=== PATIENT | male | born 1980 | race American Indian/Alaskan Native ===

== ENCOUNTER 2020-07-05 18:39 | Emergency (ER) | payer MEDICARE ==
[2020-07-05] MEDS ORDERED: NORepinephrine/NS 4 MG-250 ML 4 MG/250 ML BAG IV ONE (19:02)
[2020-07-05 19:38] VITALS: BP 118/77
[2020-07-05 19:54] LABS: Basophils % (Auto) 0.3 % (0.0-1.8); Eosinophils # (Auto) 0.1 K/mm3 (0.0-0.4); Eosinophils % (Auto) 1.1 % (0.0-4.3); Hematocrit 25.9 % (35.5-45.6); Hemoglobin 8.2 gm/dl (11.8-15.2); Lymphocytes # (Auto) 0.7 K/mm3 (1.2-5.4); Lymphocytes % (Auto) 6.2 % (13.4-35.0); Mean Corpuscular HGB Conc 32 % (32-34); Mean Corpuscular Volume 80 fl (84-94); Monocytes # (Auto) 0.7 K/mm3 (0.0-0.8); Monocytes % (Auto) 5.7 % (0.0-7.3); Platelet Count 286 K/mm3 (140-440); Red Blood Count 3.23 M/mm3 (3.65-5.03); Red Cell Distribution Width 16.9 % (13.2-15.2)
[2020-07-05 19:54] LABS: Bilirubin,Urine NEG (Negative); Blood,Urine SM (Negative); Color,Urine Yellow (Yellow); Mucus,Urine FEW /HPF; Urobilinogen,Urine < 2.0 mg/dL (<2.0)
[2020-07-05] MEDS ORDERED: oxyCODONE /ACETAMINOPHEN 5-325MG TAB PO ONE (20:05)
[2020-07-05] MEDS ORDERED: ONDANSETRON 4 MG ODT TAB PO ONE (20:06)
[2020-07-05] MEDS ORDERED: oxyCODONE /ACETAMINOPHEN 5-325MG TAB ONE (20:06)
[2020-07-05] MEDS ORDERED: ONDANSETRON 4 MG ODT TAB ONE (20:08)
[2020-07-05 20:14] LABS: Albumin 2.9 g/dL (3.9-5); Calcium 9.4 mg/dL (8.4-10.2)
[2020-07-05] MEDS ORDERED: LIDOCAINE-MPF (1%) 10 MG/1 ML VIAL 5 ML INFILTRATI ONE (22:34)
--- NOTE | 2020-07-05 23:48 | Emergency Department Report ---
ED Male HPI - General Chief complaint: Abdominal Pain Stated complaint: ABD PAIN Time Seen by Provider: 07/05/20 20:45 Source: patient Mode of arrival: Ambulatory Limitations: No Limitations - History of Present Illness Initial comments: 39-year-old -[place]ian male with past medical history of HIV, pancreatitis, acute encephalopathy, renal insufficiency, squamous cell carcinoma, papillary lichenification0, colostomy presents to the emergency department complaining suprapubic abdominal pain and pressure with penile burning upon urination and increased urinary urgency decreased production strong suspicion for urinary tract infection and seeking pain relief. Symptoms have been going on for the past 2 to 3 days states that he took some medication which did not help his symptoms. Reports no fever, chills, sweats no hemoptysis no hematemesis hematochezia no chest pain no shortness of breath. MD Complaint: dysuria - Related Data Previous Rx's Medication Instructions Recorded Last Taken Type Sulfamethoxazole/Trimethoprim 1 each PO DAILY #10 tablet 07/05/20 Unknown Rx [Bactrim Ds] Acetaminophen/Codeine [Tylenol 1 tab PO Q6H PRN #10 tab 07/06/20 Unknown Rx /Codeine # 3 tab] Allergies Allergy/AdvReac Type Severity Reaction Status Date / Time No Known Allergies Allergy Unverified 07/05/20 19:35 ED Review of Systems ROS: Stated complaint: ABD PAIN Other details as noted in HPI ED Past Medical Hx - Past Medical History Previous Medical History?: Yes Hx of Cancer: Yes (colon) Hx HIV: Yes (AIDS) Additional medical history: Pancreatitis, Elevated Liver Enzymes, AMS - Surgical History Additional Surgical History: Colostomy, THR - Social History Smoking Status: Never Smoker Substance Use Type: None - Medications Home Medications: Home Medications Medication Instructions Recorded Confirmed Last Taken Type Sulfamethoxazole/Trimethoprim 1 each PO DAILY #10 tablet 07/05/20 Unknown Rx [Bactrim Ds] Acetaminophen/Codeine [Tylenol 1 tab PO Q6H PRN #10 tab 07/06/20 Unknown Rx /Codeine # 3 tab] ED Physical Exam - General Limitations: No Limitations ED Course Vital Signs 07/05/20 19:36 Temperature 98.2 F Pulse Rate 105 H Respiratory 18 Rate Blood Pressure 118/77 [Left] O2 Sat by Pulse 99 Oximetry ED Medical Decision Making - Lab Data Result diagrams: 07/05/20 19:37 07/05/20 19:37 - Medical Decision Making 06/13/2020 5 06/11/2020 OXYCODONE-ACETAMINOPHEN 5-325 25.0 6 EM HOS [id number] [facility] P ([id number]) 0 31.25 MME Comm [facility] [place] 04/10/2020 1 04/09/2020 OXYCODONE-ACETAMINOPHEN 5-325 18.0 6 JI SMI [id number] [facility] ([id number]) 0 22.5 [place] 04/03/2020 1 04/03/2020 OXYCODONE HCL 5 MG TABLET 11.0 2 SA MED [id number] [facility] ([id number]) 0 41.25 [place] 03/18/2020 1 03/16/2020 OXYCODONE HCL 5 MG TABLET 20.0 3 JE MAN [id number] [facility] ([id number]) 0 50.0 [place] 02/16/2020 4 02/16/2020 OXYCODONE-ACETAMINOPHEN 10-325 28.0 7 PA PUL [id number] [facility] P ([id number]) 0 60.0 MME [place] 01/30/2020 3 01/29/2020 TRAMADOL HCL 50 MG TABLET 12.0 3 MA MACARIO [id number] [facility] ([id number]) 0 20.0 [place] 10/10/2019 2 10/10/2019 HYDROCODONE-ACETAMIN 5-325 MG 16.0 4 MA HUMPHREY [id number] [facility] ([id number]) 0 20.0 [place] *Pharmacy is created using a combination of pharmacy name and the last four Critical care attestation.: If time is entered above; I have spent that time in minutes in the direct care of this critically ill patient, excluding procedure time. ED Disposition Clinical Impression: UTI (urinary tract infection) Disposition: -01 TO HOME OR SELFCARE Is pt being admited?: No Does the pt Need Aspirin: No Condition: Stable Instructions: Urinary Tract Infection in Men (ED), Dysuria (ED) Additional Instructions: To be sure to follow-up with your primary care provider in the next 24 to 48 hours please let them of your visit to the emergency department and the medications that were prescribed Prescriptions: Sulfamethoxazole/Trimethoprim [Bactrim Ds] 1 each PO DAILY #10 tablet Acetaminophen/Codeine [Tylenol /Codeine # 3 tab] 1 tab PO Q6H PRN #10 tab PRN Reason: Pain , Severe (7-10) Referrals: JOHNIE HARMAN V [Other] - 3-5 Days [facility] [Provider Group] - 3-5 Days Forms: Work/School Release Form(ED)
== END 2020-07-06 00:55 | disposition home or self-care (01) ==
LOC: ED 18:39
DX: N39.0 Urinary tract infection, site not specified (principal); Z85.038 Personal history of other malignant neoplasm of large intestine
CPT/HCPCS: 36415; 80053; 81001; 83690; 85025; 87076; 87086; 87186; 96372; 99283; J0696; Q0162